=== PATIENT | female | born 1995 | race Caucasian/White ===

== ENCOUNTER 2017-12-30 09:06 | Inpatient (IN) | payer OTHER ==
[~2017-12-30] VITALS: Ht 152.4 cm; Wt 40.8 kg
[2017-12-30] MEDS ORDERED: MAG HYDROX/AL HYDROX/SIMETH 30 ML LIQUID UDC PO PRN (12:45)
[2017-12-30] MEDS ORDERED: IBUPROFEN 600 MG TABLET PO PRN (12:45)
[2017-12-30] MEDS ORDERED: LOPERAMIDE HCL 2 MG CAPSULE PO PRN ×2 (12:45)
[2017-12-30] MEDS ORDERED: BUPRENORPHINE HCL 2 MG TAB.SUBL SL PRN (12:45)
[2017-12-30] MEDS ORDERED: PROMETHAZINE HCL 25 MG TABLET PO PRN (12:45)
[2017-12-30] MEDS ORDERED: METHOCARBAMOL 750 MG TABLET PO PRN (12:45)
[2017-12-30] MEDS ORDERED: MIRALAX 17 GM POWD.PACK PO PRN (12:45)
[2017-12-30] MEDS ORDERED: MAGNESIUM HYDROXIDE 30 ML LIQUID UDC PO PRN (12:45)
[2017-12-30] MEDS ORDERED: DICYCLOMINE HCL 20 MG TABLET PO PRN (12:45)
[2017-12-30 13:00] VITALS: BP 118/73
--- NOTE | 2017-12-30 13:00 | NUR ---
Preassessment Note: Pt is a 22F, AOx4. Pt reported allergy to Zofran. Pt stated that she is here to be detoxed off of Heroin. Pt appears flat, soft-spoken, but still motivated to be in treatment. Pt reported that she takes 1g of Heroin IV daily since May 2017. Pt last used "1 bag" of approximately 0.25g of Heroin IV on 12/29/17 on 2300. Pt reports hx of anxiety and depression. Vitals: BP: 118/73, HR: 71, RR: 16, SpO2: 100%, Pain 5/10. Pt stated that she started using Heroin since 16 years old because she "wanted to fit in with her friends." She wants to be sober now "because of her daughter". Pt has previously been to [facility] [place]. Pt stated she had overdosed 1 month ago but was unable to receive medical care. Pt stated she "just woke up". Pt's withdrawal symptoms include body aches, cold sweats, nausea, fatigue, stomach cramps, and restless legs. Pt thinks she's more motivated now because she's not surrounded by her friends. Instructed pt about unit policies and procedures. Pt verbalized understanding. Will admit to [facility].
[2017-12-30 13:16] LABS: BASOPHILS # (AUTO) 0.1 K/uL (0.0-8.0); EOSINOPHILS # (AUTO) 0.2 K/uL (0.0-0.7); EOSINOPHILS % (AUTO) 3.3 % (0.0-7.0); HEMATOCRIT 37.9 % (31.2-41.9); LYMPHOCYTES # (AUTO) 1.6 K/uL (20.0-40.0); LYMPHOCYTES % (AUTO) 25.9 % (20.5-51.5); MEAN CORPUSCULAR HEMOGLOBIN 30.9 uug (24.7-32.8); MEAN CORPUSCULAR HGB CONC 34 g/dL (32.3-35.6); MEAN CORPUSCULAR VOLUME 90.5 fL (75.5-95.3); MONOCYTES # (AUTO) 0.6 K/uL (2.0-10.0); NEUTROPHILS # (AUTO) 3.9 K/uL (1.8-8.9); NEUTROPHILS % (AUTO) 60.8 % (38.5-71.5); PLATELET COUNT (AUTO) 295 K/uL (179-408); RED BLOOD CELL COUNT(AUTO) 4.19 MIL/uL (3.63-4.92); WHITE BLOOD COUNT (AUTO) 6.3 K/uL (3.8-11.8)
[2017-12-30 13:32] LABS: *AMPHETAMINE, URINE NEGATIVE (NEGATIVE); *BARBITURATE, URINE NEGATIVE (NEGATIVE); *CANNABINOID, URINE POSITIVE (NEGATIVE); *COCCAINE, URINE NEGATIVE (NEGATIVE); *OPIATE, URINE POSITIVE (NEGATIVE); *PHENCYCLIDINE SCREEN,URINE NEGATIVE (NEGATIVE)
[2017-12-30 13:34] LABS: ALANINE AMINOTRANSFERASE 23 U/L (14-59); ALKALINE PHOSPHATASE 105 U/L (50-136); ASPARTATE AMINOTRANSFERASE 15 U/L (15-37); BILIRUBIN,TOTAL 0.3 mg/dL (0.2-1.0); CARBON DIOXIDE 30 mmol/L (21-32); CHLORIDE 100 mmol/L (98-107); CREATININE 0.8 mg/dL (0.6-1.3); GLUCOSE 91 mg/dL (74-106); MAGNESIUM 2.5 mg/dL (1.8-2.4); POTASSIUM 4.1 mmol/L (3.5-5.1); TOTAL PROTEIN, SERUM 8.1 g/dL (6.4-8.2); UREA NITROGEN, BLOOD 10 mg/dL (7-18)
[2017-12-30 13:35] LABS: ETHANOL < 3 MG/DL (0-0)
[2017-12-30 13:52] LABS: *URINE HCG, QUAL NEGATIVE (NEGATIVE)
--- NOTE | 2017-12-30 15:09 | NUR ---
ADMISSION NOTE Pt is a 22 yr old female, AA&Ox4. Pt is voluntary presenting herself to [facility] for heroin use. Pt is noted with increase anxiety m/b difficulty staying still. Pt is c/o muscle aching 5/10, sweats and hot/cold chills. Pt is noted with goose flesh on BUE. Body check was complete. Skin is intact, warm and moist to touch. Respirations even and unlabored. Lung sounds are clear bilaterally. Pt states her typical withdrawals are anxiety, irritable, sweats, chills, restless legs, body aches, stomach cramps and nausea. Pt denies any hx of seizures, withdrawal induced delirium or withdrawal induced cardiac complications. Pt states of having an overdose about 1 month ago, pt states the heroin was traced with fentanyl and she states, I took too much. Pt denies received any medical care. Pt denies any SI/SA and denies any 5150. Pt states she has PMH of Anxiety and depression. Pt denies taking any psychotropic medication. Pt did bring home medication of Amoxicillin for broken tooth on the right side. Home medication was reconciled. Pt denies any PCP. Pt states of having allergies to Zofran and states it make her throat swell. Pt follows a regular diet and is full code. SUBSTANCE HX: 1. Heroin pt verbalized she was first using heroin at the age of [age] years old. Pt states she tried several times to sober from heroin but has been unable to maintain sobriety and states longest sobriety is 1 year and 2 months in 2014. Pt states she last relapsed in May 2017 and was on heroin 1g IV daily for 8 months. Last use was on 12/29/17, pt states of using 0.25g IV at 2300. 2. Marijuana - Pt states she has been smoking occasionally since she was 14 years old. Pt states she last smoked on 12/28/17. Pt does not recall the amount smoked. Pt states of going to [facility] on May 25, 2015 and was sober for 1 month then relapsed, then she went to [facility] in December 2015 and was sober for 2 weeks. Pt states she has tried 6 times, either by herself or going into treatment or AA/NA meetings, to sober herself from heroin but has been unable to maintain her sobriety due to her triggers. Pt states she began using heroin to fit in with her friends and was tempted to use. Pt states she would relapse because it was always around and she would crave for it. Pt states using heroin has negatively impact her relationship with her parents and her daughter and has difficulty keeping a job. Pt verbalized this time will be different because Im out of state. Report to Dr. Palm in regards to new admission. Pt is to start on 5 day Subutex taper on 12/31/17 and is on PRNs for s/s of w/d. Pt was educated on medication regimen and plan of care. Pt was able to verbalized understanding. Pt was oriented around the unit and equipment in the room. Pt is on fall precautions. Will continue to monitor.
--- NOTE | 2017-12-30 15:35 | NUR ---
PRN GIVEN pt is c/o increase anxiety, sweats, muscle aching 5/10, restlessness and goose flesh. COWS score was 12. Subutex 4mg SL PRN was given as ordered. Will continue to monitor.
[2017-12-30 16:00] VITALS: BP 126/79
--- NOTE | 2017-12-30 16:00 | NUR ---
PRN REASSESSMENT Subutex 4mg SL PRN was effective. COWS score went from a 12 to an 8. Pt continues to be observed with anxiety, muscle aching, and sweats. Pt was encouraged increase fluid intake. Will continue to monitor.
[2017-12-30] MEDS: AMOXICILLIN TRIHYDRATE 500 MG CAPSULE PO SCH ×2 (16:34→21:16)
[2017-12-30] MEDS ORDERED: AMOX875T2 PO (18:17)
[2017-12-30] MEDS ORDERED: ACET-2605 PO (18:17)
--- NOTE | 2017-12-30 18:32 | NUR ---
PRN GIVEN Pt is c/o tooth pain 01/22. Facial grimacing is observed. Motrin 600mg PO PRN was given. Encouraged increase fluid intake. Will continue to monitor.
--- NOTE | 2017-12-30 19:00 | NUR ---
START OF SHIFT NOTE: Endorsed patient is a 22 year old female admitted on 12/30/2017 for Opioid (Heroin)withdrawal, placed on PRN Medications, i.e. PRN Subutex SL, which tolerated well. 5 Day Subutex taper will be started tomorrow, 12/31/2017, as ordered. Withdrawal symptoms closely monitored. Patient is alert and oriented x4, cooperative, ambulatory with steady gait. Her speech is soft and clear. The patient reports allergy to Zofran, Regular Diet, is on Fall Precautions. Patient denies history of withdrawal-induced seizures. The patient appears sad, with anxious mood and labile affect. Reassuring provided. Encouraged to express her feelings. Patient noted disheveled, unkempt, and with uncombed hair. Educated in safety and hygiene care. Encouraged to independently perform hygiene care. The most recent COWS=8 at 1600, per outgoing day shift nurse report: The patient presented with moderate withdrawal symptoms of anxiety, agitation, nervousness, irritability, sweating, restlessness, and fatigue. Respirations are even and unlabored. Patient denies SOB, chest pain, and cough. Skin is intact, warm, and dry to touch. PRN Subutex 4 mg SL administrated for COWS=12 at 1535, PRN Motrin 600 mg PO administrated for tooth pain "8/10" at 1832, as ordered, and were effective. The patient tolerated well. The patient remains compliant with treatment, medications, and diet regime. Encouraged to fluids intake as tolerated. Safe and calm environment with minimized noises was provided. All needs met. Safety measures in place: Call light within reach, bed is locked in lowest position, and padded bed rails up bilaterally. Patient endorsed by outgoing day shift nurse. Will continue to monitor closely.
--- NOTE | 2017-12-30 19:00 | NUR ---
END OF SHIFT Pt is a 22 yr old female, AA&Ox4. pt is a new admit for Opiate withdrawal and is to start on 5 day Subutex taper as ordered. Pt is noted with increase anxiety, agitation, sweats, goose flesh and is noted with flat affect. Pt received Subutex 4mg SL PRN at 1533 for COWS score of 12 and Motrin 600mg PO PRN at 1830 for tooth pain. Subutex was effective. Last COWS score was 8 at 1600. Endorsed to overnight cashier nurse to continue to monitor Motrin PRN.
--- NOTE | 2017-12-30 19:32 | NUR ---
PRN MOTRIN RE-ASSESSMENT PATIENT REPORTS, "MY TOOTHACHE PAIN LEVEL DECREASED FROM "8/10", BEFORE I TAKEN MOTRIN,TO "3/10" NOW". ALL NEEDS MET. SAFETY MEASURES: CALL LIGHT WITHIN REACH, BED LOCKED IN LOWEST POSITION, BED RAILS UP X2. WILL CONTINUE TO MONITOR CLOSELY.
[2017-12-30 20:00] VITALS: BP 123/71
[2017-12-30] MEDS: diphenhydrAMINE 50 MG CAPSULE PO PRN (21:16)
--- NOTE | 2017-12-30 21:16 | NUR ---
PRN BENADRYL 50 MG 1 CAPSULE PO ADMINISTRATION PRN Benadryl 50 mg PO administrated as ordered for insomnia with full glass of water. Patient tolerated well. Safe and calm environment with minimized noises was provided. All needs met. Safety measures in the place: Call light within reach, bed locked in the lowest position, padded rails up x2. Will continue to monitor closely.
--- NOTE | 2017-12-30 22:16 | NUR ---
PRN BENADRYL PO RE-ASSESSMENT PRN Benadryl 50 mg PO administrated at 2116 was effective. The patient is sleeping. RR: 15. Respirations are even and unlabored. Safe and calm environment with minimized noises was provided. All needs met. Safety measures in the place: Call light within reach, bed locked in the lowest position, and padded rails up x2. Will continue to monitor closely.
[2017-12-31] VITALS: BP 109/68
[2017-12-31 04:00] VITALS: BP 109/68
[2017-12-31] MEDS: AMOXICILLIN TRIHYDRATE 500 MG CAPSULE PO SCH ×3 (06:15→21:09)
--- NOTE | 2017-12-31 06:58 | NUR ---
END OF SHIFT NOTE Endorsed patient is a 22 old female presented for Opioid (Heroin)withdrawal. 5 Day Subutex taper ordered,and will be started today, 12/31/2017 at 0900. Withdrawal symptoms closely monitored. Patient is alert and oriented x4, ambulatory with unsteady gait. Her speech is soft and clear. The patient reports allergy to Zofran, Regular Diet, is on Fall and Seizures Precautions. Patient denies history of seizures. The patient denies SI/HI. The patient noted with anxious mood and flat affect. Patient presented with anxiety, agitation, depression, nervousness, irritability, tremors, sweating, generalized body aches, very mild headache, fatigue, and restlessness. Initial COWS=12 at 2000, COWS=11 at 0000. The most recent COWS=11 at 0400. Skin remains intact, warm, and dry to touch. PRN Benadryl 50 mg PO administrated for insomnia at 211, and was effective. Patient remains compliant with medications, treatment, and diet regimen. Patient slept for 9 hours, intake 750 ml, voided x1. All needs met. Safety measures in the place by hospital policy: Call light within reach, bed in the lowest position and locked, padded rails up x2. Patient endorsed to day shift nurse in stable condition, report given.
--- NOTE | 2017-12-31 07:30 | NUR ---
START OF SHIFT Pt 22 y/o female admitted for opiate withdrawal. Pt received in room. Pt alert and oriented to name, place, and time. Perrla. Skin warm and moist to touch. Respirations even and unlabored. Bilateral hand tremors noted. Pt appears disheveled. Clothes and food wrappings scattered throughout the room. Encouraged to maintain hygiene. Pt anxious and easily irritable this morning. It was reported that pt slept for 9 hours last night. Last cows=11@2100. Pt is on a 5 day subutex taper and is on day 1. Bed on lowest position with side rails x2 up for safety. Call light within reach.
[2017-12-31 08:00] VITALS: BP 116/60
--- NOTE | 2017-12-31 08:00 | NUR ---
COWS ASSESSMENT Pt with cows=14. Pt restless, not able to set. Pt easily irritable and agitated. Pt states experiencing chills and sweats. Bilateral hand tremors noted.
[2017-12-31] MEDS: BUPRENORPHINE HCL 2 MG TAB.SUBL SL SCH ×4 (08:53→21:09)
[2017-12-31] MEDS ORDERED: 5 DAY TAPER BUPRENORPHINE -SERENITY PROTOCOL SL PRN (09:00)
[2017-12-31] MEDS ORDERED: TUBERCULIN,PURIF.PROT.DERIV. 5 TU/0.1 ML TEST ID ONE (09:00)
[2017-12-31 12:00] VITALS: BP 112/62
--- NOTE | 2017-12-31 12:00 | NUR ---
COWS ASSESSMENT Pt with cows=14. Pt restless. Pt easily irritable and agitated. Pressured speech noted. Pt states experiencing chills and sweats on /off throughout the day. Bilateral hand tremors noted.
[2017-12-31 12:07] LABS: HEPATITIS B SURFACE AG Negative (Negative)
--- NOTE | 2017-12-31 15:04 | NUR ---
Client was prompted to attend twice daily group counseling sessions.
[2017-12-31 16:00] VITALS: BP 118/85
[2017-12-31] MEDS: ACETAMINOPHEN 325 MG TABLET PO PRN (19:06)
--- NOTE | 2017-12-31 19:06 | NUR ---
PRN TYLENOL 650 MG PO ADMINISTRATION. PRN Tylenol 650 mg PO administrated for toothache "12/22" at 1906 with full glass of water, as ordered. Patient tolerated well. Safe and calm environment with minimized noises was provided. All needs met. Safety measures: Call light within reach, bed locked in the lowest position, and padded rails up x2. Will continue to monitor closely.
--- NOTE | 2017-12-31 19:23 | NUR ---
START OF SHIFT NOTE: Presented patient is a 22 year old female continues 5 Day Subutex taper ordered for Opioid (Heroin)withdrawal. The patient tolerated well. The patient remains compliant with treatment, medications, and diet regime. Withdrawal symptoms will be closely monitoring. Patient is alert and oriented x4, ambulatory with steady gait. The patient is cooperative with soft and clear speech, with flat mood and anxious affect. The patient reports allergy to Ondansetron (Zofran), Regular Diet, is on Fall Precautions. Patient denies history of withdrawal-induced seizures. Latest COWS=14 at 1610: Throughout the day she presented with moderate withdrawal symptoms of anxiety, agitation, nervousness, irritability, sweating, tremors, yawning, piloerection of skin, restlessness, and fatigue. Respirations are even and unlabored. Patient denies SOB, chest pain, and cough. Skin is intact, warm, and dry to touch. No PRN Medications administrated during the day. Encouraged to fluids intake as tolerated. Safe and calm environment with minimized noises was provided. All needs met. Safety measures in place: Call light within reach, bed is locked in lowest position, and padded bed rails up bilaterally. Patient endorsed by day shift nurse.
--- NOTE | 2017-12-31 19:23 | NUR ---
END OF SHIFT Pt 22 y/o female admitted for opiate withdrawal. Pt alert and oriented to name, place, and time. Perrla. Skin warm and moist to touch. Respirations even and unlabored. Bilateral hand tremors noted. Pt appears disheveled. Empty drink bottles scattered throughout the room. Encouraged to maintain hygiene. Pt also with complaints chills, sweats, and body aches throughout the day. Pt with periods of anxiety this morning. Pt also noted restless this morning, not able to sit still. Pt attended group activity. Pt was seen by MD today. Pt medication compliant. Last cows=14@1600. Pt is on a 5 day subutex taper and is on day 1. Bed on lowest position with side rails x2 up for safety. Call light within reach.
[2017-12-31 20:00] VITALS: BP 116/80
--- NOTE | 2017-12-31 20:00 | NUR ---
COWS ASSESSMENT: COWS=14: Patient presented with moderate withdrawal symptoms of anxiety, agitation, nervousness, irritability, sweating, tremors, yawning, piloerection of skin, restlessness, and fatigue.
--- NOTE | 2017-12-31 20:06 | NUR ---
PRN TYLENOL PO RE-ASSESSMENT Patient reports, "Tylenol help to me and my toothache now is "07/25". RR 15. Respirations even and unlabored. PRN Tylenol 650 mg PO administrated for toothache "01/22" at 1906 was effective. Safe and calm environment with minimized noises was provided. All needs met. Safety measures in the place: Call light within reach, bed locked in the lowest position, and padded rails up x2. Will continue to monitor closely.
[2017-12-31] MEDS: diphenhydrAMINE 50 MG CAPSULE PO PRN (21:10)
--- NOTE | 2017-12-31 21:10 | NUR ---
PRN BENADRYL 50 MG 1 CAPSULE PO ADMINISTRATION. PRN Benadryl 50 mg PO administrated for insomnia at 2110 with full glass of water, as ordered. Patient tolerated well. Safe and calm environment with minimized noises was provided. All needs met. Safety measures in the place: Call light within reach, bed locked in the lowest position, and padded rails up x2. Will continue to monitor closely.
--- NOTE | 2017-12-31 22:10 | NUR ---
PRN BENADRYL PO RE-ASSESSMENT Patient is sleeping. RR 15. Respirations even and unlabored. PRN Benadryl 50 mg PO administrated for insomnia at 2110 was effective. Safe and calm environment with minimized noises was provided. All needs met. Safety measures in the place: Call light within reach, bed locked in the lowest position, and padded rails up x2. Will continue to monitor closely.
[2018-01-01] VITALS: BP 121/77
--- NOTE | 2018-01-01 | NUR ---
COWS ASSESSMENT: Cows=10: Patient presented with mild withdrawal symptoms as anxiety, agitation, irritability, sweating, nervousness, tremors, that can be felt, not observe, nasal congestion, and fatigue.
[2018-01-01 04:00] VITALS: BP 103/60
--- NOTE | 2018-01-01 04:00 | NUR ---
COWS ASSESSMENT: COWS=10 at 0400: Patient c/o anxiety, agitation, nervousness, irritability, sweating, tremors, restlessness, and fatigue. Calm and safety environment with minimized noises was provided. All needs met. Safety measures: Call light within reach, bed in the lowest position locked, padded rails up x2.
[2018-01-01] MEDS: AMOXICILLIN TRIHYDRATE 500 MG CAPSULE PO SCH ×3 (06:07→21:01)
--- NOTE | 2018-01-01 07:10 | NUR ---
END OF SHIFT NOTE Presented patient is a 22 old female admitted for Opioid (Heroin)withdrawal, continues 5 day Subutex taper with tolerated well. Withdrawal symptoms closely monitored. Patient is alert and oriented x4, ambulatory with steady gait. Her speech is soft and clear. The patient reports allergy to Zofran, Regular Diet, is on Fall and Seizures Precautions. Patient denies history of seizures. The patient denies SI/HI. She is noted with anxious mood and liable affect. Patient presented with anxiety, agitation, depression, nervousness, irritability, body aches, tremors, sweating, very mild headache, fatigue, and restlessness. 1. COWS=14 at 2000: Patient presented with moderate withdrawal symptoms of anxiety, agitation, nervousness, irritability, sweating, tremors, yawning, piloerection of skin, restlessness, and fatigue. 2. COWS=10 at 0000: Patient presented with mild withdrawal symptoms as anxiety, agitation, irritability, sweating, nervousness, tremors, that can be felt, not observe, nasal congestion, and fatigue. 3. COWS=10 at 0400: Patient c/o anxiety, agitation, nervousness, irritability, sweating,tremors, restlessness, and fatigue. Skin remains intact, warm, and dry to touch. PRN Benadryl 50 mg PO administrated for insomnia at 0 was effective. Patient remains compliant with medications, treatment, and diet regimen. Safe and calm environment with minimized noises was provided. Patient slept for 7 hours, intake 1,210 ml, voided x2. All needs met. Safety measures: Call light within reach, bed in the lowest position and locked, padded rails up x2. Patient endorsed to day shift nurse in stable condition, report given.
--- NOTE | 2018-01-01 07:40 | NUR ---
Start of Shift Notes: Received patient in her room. Appears hypersomnolent upon waking. Denies S/I or H/I noted. No AV hallucinations noted. She appears disheveled. Room is messy and odorous with food on the floor. Encouraged maintenance of personal hygiene and space. Alert and oriented x 4. Verbally responsive. Patient is a 22 year old female admitted for opiate withdrawal who was placed on a 5-day Subutex taper as ordered. Educated patient on her current plan of care for the day and her medication regimen. Encouraged oral fluid intake and encouraged group participation to learn new skills to prevent relapse. Per night report, patient received PRN Tylenol for toothache with help. Last COWS 10 at 0400. Slept for 7 hours. All needs met and attended. Will continue to monitor.
[2018-01-01 08:00] VITALS: BP 109/60
[2018-01-01] MEDS: BUPRENORPHINE HCL 2 MG TAB.SUBL SL SCH ×3 (08:28→21:01)
--- NOTE | 2018-01-01 08:39 | NUR ---
COWS Assessment: COWS 18, patient presented with elevated pulse, facial flushing, intermittent respirations, nasal stuffiness, yawning, gross tremors, piloerection of the skin, anxiety, and generalized discomfort. Patient states "It's just uncomfortable, I feel uneasy." Offered PRNs but refused. Support provided. Will continue to monitor.
--- NOTE | 2018-01-01 11:11 | NUR ---
MD Communication: Labs Patient noted with Hep C Antibody >11.0H results. Notified MD.
[2018-01-01 12:00] VITALS: BP 113/72
--- NOTE | 2018-01-01 12:06 | NUR ---
COWS Assessment: COWS 17, patient continues to exhibit s/s of withdrawal m/b intermittent perspirations, nasal stuffiness, heightened emotional volatility, gross tremors, piloerection of the skin, anxiety, and generalized discomfort. Patient states, "Subutex worked a bit, but I still feel it that discomfort." Support provided. Will continue to monitor.
[2018-01-01 16:00] VITALS: BP 106/72
--- NOTE | 2018-01-01 16:24 | NUR ---
COWS Assessment: COWS 12, she is noted with restlessness, anxiety, agitation, pupil dilation and tremors and generalized discomfort. She verbalizes "I'm OK, just uncomfortable." Offered support. Will continue to monitor.
--- NOTE | 2018-01-01 19:02 | NUR ---
End of Shift Notes: Patient continues to be on 5-day Subutex taper as ordered. Patient is currently on day 2. No adverse reactions noted. VS monitored closely. No significant abnormalities noted. Withdrawal symptoms were closely monitored. Initial COWS 18, patient presented with poor appetite, fatigue, malaise, facial flushing, nasal stuffiness, gross tremors, yawning, anxiety, intermittent perspiration and generalized discomfort. Last COWS 12 at 1600. Patient verbalizes that Subutex has been effective in reducing her withdrawal symptoms. She participated in group and activities despite her withdrawal symptoms. Calm, cooperative and compliant with care and treatment. Oral fluids encouraged. All needs met and attended. Will continue to monitor closely.
--- NOTE | 2018-01-01 19:02 | NUR ---
START OF SHIFT NOTE: Endorsed patient is a 22 year old female presented for Opioid (Heroin)withdrawal, continues 5 Day Subutex taper ordered tolerated well. Withdrawal symptoms will be closely monitoring. The patient is alert and oriented x4, ambulatory with steady gait, cooperative with soft,clear speech. She reports allergy to Ondansetron, Regular Diet, is on Fall Precautions. The patient denies history of withdrawal-induced seizures. Latest COWS=12 at 1600: Patient presented with moderate withdrawal symptoms of anxiety, agitation, nervousness, irritability, flushed face, sweating, tremors, yawning, piloerection, restlessness, and fatigue. VSWNL. Respirations are even and unlabored. Patient denies SOB, chest pain, and cough. Skin is intact, warm, and dry to touch. No PRN Medications administrated during the day. The patient remains compliant with treatment, medications, and diet regime Encouraged to fluids intake as tolerated. Patient attended group activities. Safe and calm environment with minimized noises was provided. All needs met. Safety measures in place: Call light within reach, bed is locked in lowest position, and padded bed rails up x2. Patient endorsed by day shift nurse.
[2018-01-01 20:00] VITALS: BP_SYST 124; BP_SYST 129; BP_DIAS 74; BP_DIAS 87
--- NOTE | 2018-01-01 20:00 | NUR ---
COWS ASSESSMENT: COWS=12 at 2000: Patient presented with moderate withdrawal symptoms of anxiety, agitation, nervousness, obv. irritability, flushed face, sweating, tremors, yawning, piloerection, restlessness, and fatigue. Safe and calm environment with minimized noises was provided. All needs met. Safety measures in place: Call light within reach, bed is locked in lowest position, and padded bed rails up x2.
[2018-01-01] MEDS: diphenhydrAMINE 50 MG CAPSULE PO PRN (21:01)
--- NOTE | 2018-01-01 21:01 | NUR ---
PRN BENADRYL 50 MG PO ADMINISTRATION PRN Benadryl 50 mg PO administrated for insomnia, as ordered. Patient tolerated well. Safe and calm environment with minimized noises was provided. All needs met. Safety measures: Call light within reach, bed locked in lowest position, and padded bed rails up bilaterally. Will continue to monitor closely.
--- NOTE | 2018-01-01 22:01 | NUR ---
PRN BENADRYL PO RE-ASSESSMENT Patient is sleeping. RR 16. Respirations even and unlabored. PRN Benadryl 50 mg PO administrated for insomnia at 2101 was effective. Safe and calm environment with minimized noises was provided. All needs met. Safety measures: Call light within reach, bed locked in lowest position, and padded rails up x2. Will continue to monitor closely.
[2018-01-02] VITALS (7 sets, daily range): BP systolic 93–122; BP diastolic 53–74
--- NOTE | 2018-01-02 | NUR ---
COWS ASSESSMENT: COWS=11 at 0000: Patient appears with anxiety, agitation, nervousness, irritability, flushed face, sweating, slight tremors, mild low back aches "3/10", restlessness, and fatigue. Safe and calm environment with minimized noises was provided. All needs met. Safety measures: Call light within reach, bed locked in lowest position, and padded rails up bilaterally. Will continue to monitor closely.
--- NOTE | 2018-01-02 04:00 | NUR ---
COWS ASSESSMENT: COWS=11 at 0400: Patient appears with anxiety, agitation, nervousness, irritability, nasal congestion, sweating, slight tremors, mild low back aches "3/10", restlessness, and fatigue. Patient reports, "I do feel better than yesterday, though. Thankfully, I'm able to sleep, but the anxiety and restlessness are tough". Safe and calm environment with minimized noises was provided. All needs met. Safety measures in place: Call light within reach, bed is locked in lowest position, and padded bed rails up x2. Will continue to monitor closely.
[2018-01-02] MEDS: AMOXICILLIN TRIHYDRATE 500 MG CAPSULE PO SCH ×3 (06:15→21:28)
[2018-01-02] MEDS: ACETAMINOPHEN 325 MG TABLET PO PRN ×2 (06:16→21:29)
--- NOTE | 2018-01-02 06:16 | NUR ---
PRN TYLENOL 650 MG PO ADMINISTRATION. PRN Tylenol 650 mg PO administrated for toothache "12/22" at 0616 with full glass of water, as ordered. Patient tolerated well. Safe and calm environment with minimized noises was provided. All needs met. Safety measures: Call light within reach, bed locked in the lowest position, and padded rails up x2. Will continue to monitor closely.
--- NOTE | 2018-01-02 06:54 | NUR ---
END OF SHIFT NOTE: The patient is a 22 year old female continues 5 Day Subutex taper ordered presented for Opioid (Heroin)withdrawal. The patient remains compliant with treatment, medications, and diet regime. Withdrawal symptoms closely monitored. The patient is alert and oriented x4, ambulatory with steady gait, cooperative with soft, clear speech. Affect irritable and anxious. Mood labile. The patient encouraged to express his feelings. Education provided to use of Relaxation Techniques: Deep breathing exercises, guided imagery, and visualization. COWS ASSESSMENTS: 1. COWS=12 at 2000: Patient presented with moderate withdrawal symptoms of anxiety, agitation, nervousness, irritability, flushed face, sweating, tremors, yawning, piloerection, restlessness, and fatigue. 2. COWS=11 at 0000: Patient appears with anxiety, agitation, nervousness, irritability, flushed face, sweating, slight tremors, mild low back aches "3/10", restlessness, and fatigue. 3. COWS=11 at 0400: Patient appears with anxiety, agitation, nervousness, irritability, nasal congestion, sweating, slight tremors, mild low back aches "3/10", restlessness, and fatigue. Patient reports, "I do feel better than yesterday, though. Thankfully, I'm able to sleep, but the anxiety and restlessness are tough". VSWNL. Respirations are even and unlabored. Patient denies SOB, chest pain, and cough. Skin is intact, warm, and dry to touch. PRN Benadryl 50 mg PO administrated for insomnia at 2101, PRN Tylenol 650 mg PO for toothache "7/10" administrated at 0616, and were effective. Patient slept for 7 hours, intake 1,500 ml, voided x1. Encouraged to fluids intake as tolerated. Patient attended group activities. Safe and calm environment with minimized noises was provided. All needs met. Safety measures in place: Call light within reach, bed is locked in lowest position, and padded bed rails up x2. Patient endorsed to day shift nurse.
--- NOTE | 2018-01-02 07:16 | NUR ---
PRN TYLENOL PO RE-ASSESSMENT PRN Tylenol 650 mg PO administrated for toothache "01/22" at 0616 was effective. Patient reports, "Tylenol help to me: toothache now is "08/22". Safe and calm environment with minimized noises was provided. All needs met. Safety measures in the place: Call light within reach, bed locked in the lowest position, and padded rails up x2. Will continue to monitor closely.
--- NOTE | 2018-01-02 07:29 | NUR ---
Start of Shift Notes: Received patient in her room. Appears hypersomnolent upon waking. Upon waking, she appears irritable, preoccupied and worried. Reassurance provided. Denies S/I or H/I noted. No AV hallucinations noted. Room is messy and odorous with food on the floor and stained clothes. Encouraged maintenance of personal hygiene and space. Alert and oriented x 4. Verbally responsive. Patient is a 22 year old female admitted for opiate withdrawal who was placed on a 5-day Subutex taper as ordered. Educated patient on her current plan of care for the day and her medication regimen. Encouraged oral fluid intake and encouraged group participation to learn new skills to prevent relapse. Per night report, patient received PRN Tylenol for toothache with help. Last . Slept for 7 hours. All needs met and attended. Will continue to monitor.
--- NOTE | 2018-01-02 08:00 | NUR ---
COWS Assessment: COWS 14, patient presented with facial flushing, chills, diaphoresis, hot flashes, intermittent perspiration, pupil dilation, nasal stuffiness, yawning, fine tremors, anxiety, irritability, increased emotional amplitude, decreased appetite, mild paresthesia, vivid dreams, malaise, fatigue and generalized discomfort. She verbalizes "I need my Subutex right now. I'm feeling like shit." Reassurance provided. Will continue to monitor.
[2018-01-02] MEDS ORDERED: BUPRENORPHINE HCL 2 MG TAB.SUBL SL SCH (09:00)
--- NOTE | 2018-01-02 12:00 | NUR ---
COWS Assessment: COWS 12, patient continues to present with intermittent perspiration, nasal stuffiness, irritability, increased emotional amplitude, decreased appetite, and fatigue. Support provided. Offered PRNs.
[2018-01-02] MEDS: BUPRENORPHINE HCL 2 MG TAB.SUBL SL SCH ×2 (14:05→21:29)
--- NOTE | 2018-01-02 19:00 | NUR ---
End of Shift Notes: Patient continues to be on 5-day Subutex taper as ordered. Patient is currently on day 3. No adverse reactions noted. VS monitored closely. No significant abnormalities noted. Withdrawal symptoms were closely monitored. Initial COWS 14, patient presented with poor appetite, fatigue, malaise, facial flushing, nasal stuffiness, gross tremors, yawning, anxiety, restlessness, irritability, increased emotional amplitude, chills, hot flashes, vivid dreams, intermittent perspiration and generalized discomfort. Last COWS 9 at 1600. Patient verbalizes that Subutex has been effective in reducing her withdrawal symptoms. She participated in group and activities despite her withdrawal symptoms. Calm, cooperative and compliant with care and treatment. Oral fluids encouraged. All needs met and attended. Will continue to monitor closely.
--- NOTE | 2018-01-02 19:30 | NUR ---
START OF SHIFT NOTE RECEIVED REPORT FROM DAY SHIFT NURSE. PATIENT IS A 22 YEAR OLD FEMALE ADMITTED FOR OPIATE WITHDRAWAL. PATIENT IS ON 3RD DAY OF HER 5 DAY SUBUTEX TAPER. PATIENT ON ANTIBIOTIC ORALLY FOR TOOTHACHE. PATIENT DID NOT REQUIRE PRN MEDICATION. LAST COWS 9. PATIENT IN THE HALLWAY WAITING TO DOWN TO SMOKE. PATIENTS BED UNMADE AND CLOTHES ON TABLE. SAFETY MEASURES IN PLACE. CALL LIGHT IN REACH. WILL CONTINUE TO MONITOR.
--- NOTE | 2018-01-02 20:00 | NUR ---
COWS ASSESSMENT PATIENT PRESENTS WITH ANXIETY, RESTLESSNESS , EMOTIONAL VOTALITY, FLUSHED FACE, INTERMITTENT PERSPIRATION, TOOTHACHE, GENERALIZED DISCOMFORT AND YAWNING. COWS 10.
[2018-01-02] MEDS: diphenhydrAMINE 50 MG CAPSULE PO PRN (21:29)
--- NOTE | 2018-01-02 21:29 | NUR ---
PRN TYLENOL AND BENADRYL ADMINISTRATION PATIENT C/O TOOTHACHE AND REQUESTS FOR SLEEP AID. WILL MONITOR FOR EFFECTIVENESS
--- NOTE | 2018-01-02 22:29 | NUR ---
PRN TYLENOL RE-ASSESSMENT PATIENT STATES TYLENOL HELPFUL. PAIN TOLERABLE . WILL CONTINUE TO MONITOR
--- NOTE | 2018-01-02 23:30 | NUR ---
PRN ZIYADADRYL ASSESSMENT PATIENT LYING IN BED WITH EYES CLOSED. RESPIRATION EVEN AND UNLABORED. SAFETY MEASURES IN PLACE. CALL LIGHT IN REACH.
[2018-01-03] VITALS: BP 105/54
--- NOTE | 2018-01-03 | NUR ---
COWS DEFERRED PATIENT LYING IN BED WITH EYES CLOSED. RESPIRATION EVEN AND UNLABORED. SAFETY MEASURES IN PLACE. CALL LIGHT IN REACH.
[2018-01-03 04:00] VITALS: BP 110/62
--- NOTE | 2018-01-03 04:00 | NUR ---
COWS DEFERRED PATIENT LYING IN BED WITH EYES CLOSED. RESPIRATION EVEN AND UNLABORED. SAFETY MEASURES IN PLACE. CALL LIGHT IN REACH.
[2018-01-03] MEDS: AMOXICILLIN TRIHYDRATE 500 MG CAPSULE PO SCH ×3 (06:11→21:16)
--- NOTE | 2018-01-03 07:13 | NUR ---
END OF SHIFT NOTE PATIENT SLEPT 6 HOURS. FLUID INTAKE 1,138 ML. VOIDED X 2. NO BM. MONITORED PATIENT THROUGHOUT SHIFT. SCHEDULED MEDICATION AND SUBUTEX TAPER GIVEN ORDERED, TOLERATED WELL AND NO ADVERSE REACTION . PATIENTS COWS WAS 10 BEGINNING OF SHIFT. PATIENT C/O TOOTHACHE AND REQUESTED FOR SLEEP AID AT 2128. PRN BENADRYL AND TYLENOL. CONTINUE ON ANTIBIOTIC ORALLY FOR TOOTHACHE. ENCOURAGED FLUIDS. PATIENT FREQUENTLY GOES DOWN TO SMOKE. SAFETY MEASURES IN PLACE. CALL LIGHT IN REACH. WILL CONTINUE TO MONITOR. LAST COWS 10.
--- NOTE | 2018-01-03 07:20 | NUR ---
Start of Shift Notes: Received patient in her room. Appears hypersomnolent upon waking. Upon waking, she appears irritable, and easily agitated. She is short with her answers but apoligizes. She states "I'm sorry, I'm just waking up." Reassurance provided. Denies S/I or H/I noted. No AV hallucinations noted. Room is messy with food on the floor and stained clothes. Encouraged maintenance of personal hygiene and space. Alert and oriented x 4. Verbally responsive. Patient is a 22 year old female admitted for opiate withdrawal who was placed on a 5-day Subutex taper as ordered. No adverse reactions noted. Educated patient on her current plan of care for the day and her medication regimen. Encouraged oral fluid intake and encouraged group participation to learn new skills to prevent relapse. Per night report, patient received PRN Tylenol for toothache with help and Benadry for sleep. Last COWS 10. Slept for 6 hours. All needs met and attended. Will continue to monitor.
[2018-01-03 08:00] VITALS: BP 116/62
[2018-01-03] MEDS: BUPRENORPHINE HCL 2 MG TAB.SUBL SL SCH ×3 (08:18→21:16)
--- NOTE | 2018-01-03 08:32 | NUR ---
COWS Assessment: COWS 14, patient presented with facial flushing, diaphoresis, restlessness, intermittent perspiration, anxiety, agitation, irritability, yawning, depressed behavior m/b facial sadness and feeling of having no energy. She also reports malaise, fatigue, on and off heart palpitations when she is anxious and gross tremors noted. Will continue to monitor and offer support.
[2018-01-03] MEDS ORDERED: ESCITALOPRAM OXALATE 10 MG TABLET PO SCH (09:00)
[2018-01-03 12:00] VITALS: BP 130/64
--- NOTE | 2018-01-03 12:29 | NUR ---
Psych MD Communication: Lexapro Dr. Plascencia started patient on Lexapro for depression. Patient reported that she feels nauseated and currently has an upset stomach. Offered Mylanta but refused. She states "I know it's from the Lexapro. I don't want to take that anymore." Notified Dr. Plascencia and order was stopped. Patient was encouraged to increase oral water intake. All needs met and attended. Will continue to monitor.
--- NOTE | 2018-01-03 12:31 | NUR ---
COWS Assessment COWS 12, patient complained of nausea, restlessness, anxiety, and agitation. She is also seen with mood instability and gross tremors. She is pacing in the hallway holding her stomach. Offered PRNs but refused. Support provided. Will continue to monitor closely.
--- NOTE | 2018-01-03 14:40 | NUR ---
Client was prompted to attend twice daily group therapy sessions.
[2018-01-03 16:00] VITALS: BP 117/74
--- NOTE | 2018-01-03 16:30 | NUR ---
COWS Assessment: COWS 10, patient continues to present with gross tremors, anxiety, restlessness and agitation. She was tearful during group. Encouraged to verbalize her feelings and concerns. Support provided. Will continue to monitor.
--- NOTE | 2018-01-03 19:09 | NUR ---
End of Shift Notes: Patient continues to be on 5-day Subutex taper as ordered. Patient is currently on day 4. No adverse reactions noted. VS monitored closely. No significant abnormalities noted. Withdrawal symptoms were closely monitored. Initial COWS 14, patient presented with poor appetite, fatigue, malaise, facial flushing, nasal stuffiness, gross tremors, yawning, anxiety, restlessness, irritability, increased emotional amplitude, chills, hot flashes, vivid dreams, intermittent perspiration, depressed mood and generalized discomfort. She was started on Lexapro 10 mg PO today for depression from Dr. Plascencia. Education provided. Last COWS 10 at 1600.Patient verbalizes that Subutex has been effective in reducing her withdrawal symptoms. She participated in group and activities despite her withdrawal symptoms. Calm, cooperative and compliant with care and treatment. Oral fluids encouraged. All needs met and attended. Will continue to monitor closely.
--- NOTE | 2018-01-03 19:30 | NUR ---
START OF SHIFT Pt is a 22 y/o female admitted for opiate withdrawals. Pt is A/A/O X 4.Continues on Subutex taper as ordered and is tolerating well.Last COWS was 10 at 1600. Stated that Subutex has been helpful in managing her withdrawal symptoms.Pt presented with anxiety,restlessness and intermittent hot and cold flashes.Pt stated that she was having nausea earlier but no c/o nausea noted at this time.Pt continues on Amoxicillin as ordered;no adverse reactions noted. PO fluids encouraged as tolerated. All safety measures in place,call rogers is within reach,will continue to monitor.
[2018-01-03 20:00] VITALS: BP 124/84
--- NOTE | 2018-01-03 20:00 | NUR ---
COWS=10.PT IS ANXIOUS,RESTLESS WITH INTERMITTENT HOT AND COLD FLASHES.WILL CONTINUE TO MONITOR.
[2018-01-03] MEDS: diphenhydrAMINE 50 MG CAPSULE PO PRN (21:15)
--- NOTE | 2018-01-03 21:16 | NUR ---
PRN BENADRYL GIVEN ORDERED FOR C/O INSOMNIA.WILL MONITOR.
--- NOTE | 2018-01-03 22:15 | NUR ---
PRN ERICKL ASSESSMENT PATIENT IS STILL AWAKE,NOT QUITE SLEEPY YET.ENCOURAGED TO LIE DOWN IN BED,RELAXATION TECHNIQUES ENCOURAGED.WILL CONTINUE TO MONITOR.
--- NOTE | 2018-01-03 23:15 | NUR ---
PT IS SLEEPING COMFORTABLY IN BED,BREATHING IS EVEN AND NON LABORED.NO S/S OF DISTRESS NOTED.ALL SAFETY MEASURES IN PLACE,CALL CAMPOS WITHIN REACH.WILL CONTINUE TO MONITOR.
[2018-01-04] VITALS: BP 121/72
--- NOTE | 2018-01-04 | NUR ---
COWS DEFERRED PATIENT LYING IN BED WITH EYES CLOSED. RESPIRATION EVEN AND NONLABORED. ALL SAFETY MEASURES IN PLACE. CALL LIGHT IN REACH.COWS DEFERRED DUE TO PT BEING ASLEEP.WILL CONTINUE TO MONITOR.
--- NOTE | 2018-01-04 04:00 | NUR ---
COWS DEFERRED PATIENT LYING IN BED WITH EYES CLOSED. RESPIRATION EVEN AND NONLABORED. ALL SAFETY MEASURES IN PLACE. CALL LIGHT IN REACH.COWS DEFERRED DUE TO PT BEING ASLEEP.V/S REFUSED.WILL CONTINUE TO MONITOR.
[2018-01-04] MEDS: AMOXICILLIN TRIHYDRATE 500 MG CAPSULE PO SCH ×3 (06:17→21:16)
--- NOTE | 2018-01-04 06:46 | NUR ---
END OF SHIFT Pt is a 22 y/o female admitted for opiate withdrawals. Pt is A/A/O X 4.Continues on Subutex taper as ordered and is tolerating well.Last COWS was 10 at 1999. Stated that Subutex has been helpful in managing her withdrawal symptoms.Pt continues on Amoxicillin as ordered;no adverse reactions noted. PO fluids encouraged as tolerated.PRN Benadryl was given for insomnia with good effect.Pt slept 8 hours,fluid intake was 1310 mls,voided x 4 . All safety measures in place,call rogers is within reach,will continue to monitor and endorse care to day shift nurse.
--- NOTE | 2018-01-04 07:21 | NUR ---
Start Of Shift: Patient is a 22 yr old female who was admitted to [facility] on 12/30/17 for a medically supervised withdrawal from Opiates ( Heroin),She is on a 5 day Subutex taper and this is day 4. PRN medications given on PM shift: Benadryl for sleep aid. She is Amoxicillin for a dental infection. She slept for 8 hours and is currently asleep in bed at this time, breathing even and unlabored, Last COWS was 10. Continue to follow MD plan of care and offer support as needed.
[2018-01-04 09:00] VITALS: BP 122/80
[2018-01-04] MEDS ORDERED: BUPRENORPHINE HCL 2 MG TAB.SUBL SL SCH (09:00)
--- NOTE | 2018-01-04 09:00 | NUR ---
COWS 9 Withdrawal symptoms present as anxiety, diaphoresis, mood swings, irritability and restlessness. Patient declined any PRN medications, took scheduled Subutex 2MG SL
[2018-01-04 12:00] VITALS: BP 122/84
--- NOTE | 2018-01-04 12:22 | NUR ---
COWS 9 withdrawal symptoms present as restlessness, anxiety, decreased appetite and irritability.
[2018-01-04] MEDS: CLONIDINE HCL 0.1 MG TABLET PO PRN ×2 (13:38→21:16)
[2018-01-04] MEDS: HYDROXYZINE PAMOATE 25 MG CAPSULE PO PRN ×2 (13:38→21:16)
--- NOTE | 2018-01-04 13:40 | NUR ---
PRN Vistaril 25 MG PO and Clonidine 0.1 MG PO given for reports of increased anxiety and irritability. will reassess
--- NOTE | 2018-01-04 14:40 | NUR ---
PRN Reassess Vistaril and Clonidine effective per patient report, states her anxiety is much less than before.
[2018-01-04 16:00] VITALS: BP 109/61
--- NOTE | 2018-01-04 16:00 | NUR ---
COWS 9 Patients withdrawal symptoms include increased anxiety, agitation, restless ness and tachycardia. Clonidine and Vistaril were given with positive results in reducing patients anxiety and restlessness.
--- NOTE | 2018-01-04 18:38 | NUR ---
End Of Shift: Patient is a 22 yr old female who was admitted to [facility] on 12/30/17 for a medically supervised withdrawal from Opiates ( heroin IV )and has completed a 5 day Subutex taper with PRN Ativan. She will be discharged in the AM to " [facility]". Her withdrawal symptoms today have included : Tachycardia, increased anxiety and irritability and lethargy. PRN medications given on this shift: Clonidine 0.1 MG Po and Vistaril 25 MG PO with positive effects on reducing anxiety. She has attended all groups and is interacting with her peers. She continue on Amoxicillin 500MG PO Q 8H for dental/tooth infection. She had a fluid intake of 2100 ML, 3 voids and 1 BM. Her last COWS was 9. Continue to follow MD plan of care and offer support as needed. Endorsed to shift boss.
--- NOTE | 2018-01-04 18:57 | NUR ---
End Of Shift: Patient is a 22 yr old female who was admitted to [facility] on 12/30/17 for a medically supervised withdrawal from Opiates ( heroin IV )and has completed a 5 day Subutex taper with PRN Ativan. She will be discharged in the AM to " [facility]". Her withdrawal symptoms today have included : Tachycardia, increased anxiety and irritability and lethargy. PRN medications given on this shift: Clonidine 0.1 MG Po and Vistaril 25 MG PO with positive effects on reducing anxiety. She has attended all groups and is interacting with her peers. She continue on Amoxicillin 500MG PO Q 8H for dental/tooth infection. She had a fluid intake of 2100 ML, 3 voids and 1 BM. Her last COWS was 9. Continue to follow MD plan of care and offer support as needed. Endorsed to night shift supervisor
--- NOTE | 2018-01-04 19:30 | NUR ---
START OF SHIFT Pt is a 22 y/o female admitted for opiate withdrawals. Pt is A/A/O X 4.Pt has completed Subutex taper and is scheduled for discharge in the morning to [facility].Last COWS was 9 at 1600. Pt presented with anxiety,restlessness and intermittent hot and cold flashes.Pt stated that she is feeling anxious because she keeps thinking about her discharge tomorrow.Pt was given PRN Clonidine and Vistaril for anxiety during the day shift and it was effective in controlling her anxiety.She is requesting for the same at bedtime.Pt continues on Amoxicillin as ordered for dental infection;no adverse reactions noted. PO fluids encouraged as tolerated. All safety measures in place,call rogers is within reach,will continue to monitor.
[2018-01-04 20:00] VITALS: BP 112/67
--- NOTE | 2018-01-04 20:00 | NUR ---
COWS=9.PT IS C/O FEEING ANXIOUS AND RESTLESS,"I THINK I HAVE ANXIETY BECAUSE I KEEP THINKING ABOUT MY DISCHARGE IN THE MORNING".PRN MEDS OFFERED BUT PT DECLINED AT THIS TIME.
[2018-01-04] MEDS: diphenhydrAMINE 50 MG CAPSULE PO PRN (21:15)
--- NOTE | 2018-01-04 21:16 | NUR ---
PRN MEDS PRN VISTARIL 25 MG PO AND CLONIDINE 0.1 MG PO GIVEN C/O ANXIETY.PRN BENADRYL 50 MG PO GIVEN FOR C/O INSOMNIA.WILL MONITOR FOR EFFECTIVENESS.
--- NOTE | 2018-01-04 22:08 | NUR ---
BEHAVIOR NOTE Patient was seen kissing a male peer in the hallway. Patient placed on patio restriction and reminded of the rules, policies and protocols of the unit.Pt is calm and cooperative,and is able to follow directions; will continue to monitor.
[2018-01-04] MEDS ORDERED: CLON0.1T14 PO (22:48)
[2018-01-04] MEDS ORDERED: AMOX500C2 PO (22:48)
[2018-01-04] MEDS ORDERED: IBUP-1955 PO (22:48)
[2018-01-04] MEDS ORDERED: HYDR-3895 PO (22:48)
--- NOTE | 2018-01-04 22:49 | NUR ---
PRN MEDS ARE EFFECTIVE IN RELIEVING ANXIETY.PT IS RESTING IN BED TRYING TO SLEEP.APOLOGIZED FOR HER BEHAVIOR.NO C/O PAIN OR DISTRESS NOTED,WILL CONTINUE TO MONITOR.
--- NOTE | 2018-01-05 06:55 | NUR ---
END OF SHIFT Pt is a 22 y/o female admitted for opiate withdrawals. Pt is A/A/O X 4.Pt is scheduled for discharge today to [facility].Last COWS was 9 at 1999. Pt presented with anxiety,restlessness and intermittent hot and cold flashes.Pt stated that she is feeling anxious because she keeps thinking about her discharge tomorrow.Pt was given PRN Clonidine and Vistaril for anxiety and Benadryl for insomnia and it was effective .Pt continues on Amoxicillin as ordered for dental infection;no adverse reactions noted. PO fluids encouraged as tolerated.Pt slept 7 hrs,fluid intake was 710mls,voided x 2. All safety measures in place,call rogers is within reach,will continue to monitor.
[2018-01-05] MEDS: AMOXICILLIN TRIHYDRATE 500 MG CAPSULE PO SCH (07:00)
--- NOTE | 2018-01-05 07:49 | NUR ---
Start of Shift Notes: Received patient in her room. Alert and oriented x 4. Upon waking, she appears irritable, and easily agitated. Reassurance provided. Denies S/I or H/I noted. No AV hallucinations noted. Room is messy and noted to have poor regards to hygiene. Encouraged maintenance of personal hygiene and space. Patient is a 22 year old female admitted for opiate withdrawal who was placed on a 5-day Subutex taper as ordered. No adverse reactions noted. Patient completed taper and will be discharging today. Educated patient on the discharge process. Patient verbalized good understanding. Per night report, patient received no PRNs and slept for 8 hours. Last COWS 9. She was placed on patio and recreation room restriction due to inappropriate behavior. All needs met and attended. Will continue to monitor.
[2018-01-05 08:00] VITALS: BP 93/50
--- NOTE | 2018-01-05 08:51 | NUR ---
COWS Assessment: COWS 7, patient presented with anxiety, irritability, chills, hot flashes, and mild tremors. VS stable. Will continue to monitor.
--- NOTE | 2018-01-05 09:45 | NUR ---
Discharged: Patient education provided regarding her discharge instructions. She verbalized good understanding. All necessary dc paperwork were explained and signed by the patient. Discharge packet, belongings, and home meds were returned to the patient. VS stable. COWS 7. Escorted off the unit by PULP OPERATOR. Picked up by [employer].
== END 2018-01-05 09:45 | disposition other institution (70) | DRG 895 ==
LOC: SRC 12:11
PROVIDERS: ADMIT Family Medicine Addiction Medicine; ATTEND Family Medicine Addiction Medicine
PROC: HZ2ZZZZ Detoxification Services for Substance Abuse Treatment (ICD-10-PCS; principal; 2017-12-30)
PROC: HZ31ZZZ Individual Counseling for Substance Abuse Treatment, Behavioral (ICD-10-PCS; 2017-12-31)
PROC: HZ41ZZZ Group Counseling for Substance Abuse Treatment, Behavioral (ICD-10-PCS; 2017-12-31)
DX: F11.23 Opioid dependence with withdrawal (principal); K12.2 Cellulitis and abscess of mouth; K02.9 Dental caries, unspecified; F17.210 Nicotine dependence, cigarettes, uncomplicated; K04.7 Periapical abscess without sinus; B19.20 Unspecified viral hepatitis C without hepatic coma; F12.90 Cannabis use, unspecified, uncomplicated
CPT/HCPCS: 36415; 70030-TC; 80307; 80349; 80361; 83735; 84703; 85025; 86580; 86592; 86705; 86803; 87340; 87806; A4663; G0480; Q0163